=== PATIENT | female | born 1975 | race Caucasian/White ===

== ENCOUNTER 2017-11-29 08:14 | Outpatient (CLI) | payer OTHER ==
[2017-11-29 12:47] LABS: BASOPHILS % (AUTO) 0.9 %; EOSINOPHILS # (AUTO) 0.1 10^3/uL (0.0-0.7); EOSINOPHILS % (AUTO) 1.3 %; HGB - HEMOGLOBIN 13.7 g/dL (12.0-16.0); LYMPHOCYTES # (AUTO) 1.5 10^3/uL (1.5-3.5); LYMPHOCYTES % (AUTO) 31.3 %; MEAN CORPUSCULAR HGB CONC 33.3 g/dL (32.0-36.0); MEAN CORPUSCULAR VOLUME 93.3 fL (81.0-99.0); MONOCYTES # (AUTO) 0.5 10^3/uL (0.0-1.0); MONOCYTES % (AUTO) 9.7 %; NEUTROPHILS # (AUTO) 2.8 10^3/uL (1.5-6.6); NEUTROPHILS % (AUTO) 56.8 %; PLT - PLATELET COUNT 135 10^3/uL (130-450); RED BLOOD COUNT 4.42 10^6/uL (4.20-5.40); RED CELL DISTRIBUTION WIDTH 13.4 % (12.0-15.0); WHITE BLOOD COUNT 4.9 x10^3/uL (4.8-10.8)
[2017-11-29 13:24] LABS: ALBUMIN 4.3 g/dL (3.2-5.5); ALBUMIN/GLOBULIN RATIO 1.5 (1.0-2.2); ALKALINE PHOSPHATASE 37 IU/L (42-121); ALT ALANINE AMINOTRANSFERASE 17 IU/L (10-60); AST ASPARTATE AMINOTRANSFERASE 17 IU/L (10-42); BILIRUBIN,TOTAL 1.4 mg/dL (0.2-1.0); BUN - BLOOD UREA NITROGEN 12 mg/dL (6-20); CARBON DIOXIDE - CO2 26 mmol/L (21-32); CHLORIDE 104 mmol/L (101-111); CHOL/HDL RATIO 3.2 (<4.4); CHOLESTEROL 167 mg/dL; CREATININE 0.7 mg/dL (0.4-1.0); GFR - MDRD 92 (>89); GLUCOSE 95 mg/dL (70-100); HDL CHOLESTEROL 52 mg/dL; SODIUM 136 mmol/L (135-145); TOTAL PROTEIN 7.2 g/dL (6.7-8.2)
[2017-11-29 14:43] LABS: LDL CHOLESTEROL,DIRECT 90 mg/dL; LDLD/HDL RATIO 1.7 (<4.4)
== END 2017-11-29 08:15 | disposition home or self-care (01) ==
LOC: LAB.F 08:14
PROVIDERS: ATTEND Nurse Practitioner Family
DX: Z00.00 Encounter for general adult medical examination without abnormal findings (principal); E55.9 Vitamin D deficiency, unspecified; E78.5 Hyperlipidemia, unspecified
CPT/HCPCS: 36415; 80053; 80061; 82306; 82728; 83090; 83721; 85025

== ENCOUNTER 2017-12-20 08:04 | Outpatient (CLI) | payer OTHER ==
[2017-12-20 12:27] LABS: T4 (THYROXINE) 7.4 ug/dL (6.09-12.23)
[2017-12-20 12:33] LABS: THYROID STIMULATING HORMONE 1.83 uIU/mL (0.34-5.60)
[2017-12-20 12:36] LABS: FREE T4 (FREE THYROXINE) 0.88 ng/dL (0.58-1.64)
[2017-12-22 10:36] LABS: THYROID PEROXIDASE ANTIBODIES <1 IU/mL (<9)
== END 2017-12-20 08:05 | disposition home or self-care (01) ==
LOC: LAB.F 08:04
PROVIDERS: ATTEND Nurse Practitioner Family
DX: R53.83 Other fatigue (principal)
CPT/HCPCS: 36415; 84436; 84439; 84443; 84481; 84482; 86376; 86800

== ENCOUNTER 2018-08-11 11:15 | Outpatient (CLI) | payer BC ==
--- NOTE | 2018-08-11 13:26 | XRAY Report ---
Reason: COCCYX PAIN Procedure Date: 08/11/2018 Accession Number: [id number] / [id number] Procedure: XR - Sacrum/Coccyx CPT Code: FULL RESULT: EXAM: SACRUM AND COCCYX RADIOGRAPHY EXAM DATE: 08/11/2018 12:24 PM. HISTORY: Coccyx pain. COMPARISONS: None. TECHNIQUE: 2 views. FINDINGS: Alignment: Normal. The sacrum and coccyx are normally aligned. Bones: Normal. No fracture or bone lesion. Joints: Normal. The sacroiliac joints and visualized hips are within normal limits. Soft Tissues: Unremarkable. IMPRESSION: No fracture is detected. RADIA
== END 2018-08-11 11:16 | disposition home or self-care (01) ==
LOC: DI 11:15
PROVIDERS: ATTEND Nurse Practitioner Family
DX: M53.3 Sacrococcygeal disorders, not elsewhere classified (principal)
CPT/HCPCS: 72220

== ENCOUNTER 2020-11-11 09:41 | Outpatient (CLI) | payer OTHER ==
[2020-11-11 14:45] LABS: BASOPHILS % (AUTO) 0.7 %; EOSINOPHILS # (AUTO) 0.1 10^3/uL (0.0-0.7); EOSINOPHILS % (AUTO) 1.5 %; HCT - HEMATOCRIT 42.5 % (37.0-47.0); HGB - HEMOGLOBIN 13.6 g/dL (12.0-16.0); LYMPHOCYTES # (AUTO) 1.6 10^3/uL (1.5-3.5); LYMPHOCYTES % (AUTO) 30.5 %; MEAN CORPUSCULAR HEMOGLOBIN 30.6 pg (27.0-31.0); MEAN CORPUSCULAR VOLUME 95.5 fL (81.0-99.0); MEAN PLATELET VOLUME 12.8 fL (7.9-10.8); MONOCYTES # (AUTO) 0.4 10^3/uL (0.0-1.0); MONOCYTES % (AUTO) 8.2 %; NEUTROPHILS # (AUTO) 3.2 10^3/uL (1.5-6.6); NEUTROPHILS % (AUTO) 58.9 %; PLT - PLATELET COUNT 161 10^3/uL (130-450); RED BLOOD COUNT 4.45 10^6/uL (4.20-5.40); RED CELL DISTRIBUTION WIDTH 12.8 % (12.0-15.0); WHITE BLOOD COUNT 5.4 x10^3/uL (4.8-10.8)
== END 2020-11-11 09:42 | disposition home or self-care (01) ==
LOC: LAB.S 09:41
PROVIDERS: ATTEND Nurse Practitioner Family
DX: Z13.1 Encounter for screening for diabetes mellitus (principal)
CPT/HCPCS: 36415; 85025

== ENCOUNTER 2020-11-24 12:59 | Outpatient (CLI) | payer OTHER ==
--- NOTE | 2020-11-25 12:59 | Mammography Report ---
BILATERAL DIGITAL SCREENING MAMMOGRAM 3D/2D WITH EXAGGERATED CC: 11/24/2020 CLINICAL: Baseline exam. Routine screening. Routine screening. Comparison is made to exams dated: 09/14/2013 ultrasound and 09/14/2013 mammogram - [facility]. The tissue of both breasts is heterogeneously dense. This may lower the sensitivity of m ammography. No significant masses, calcifications, or other findings are seen in either breast. There has been no significant interval change. IMPRESSION: NEGATIVE There is no mammographic evidence of malignancy. A 1 year screening mammogram is recommended. This exam was interpreted at Station ID: [id number]. NOTE: For mammograms, a report in lay terms will be sent to the patient. Approximately 15% of breast malignancies will not be visualized mammographically. In the management of a palpable breast mass, a negative mammogram must not discourage biopsy of a clinically suspicious lesion. Electronically Signed By: Jose Antonio Puente M.D., jr/[place]:11/24/2020 13:44:44 ACR BI-RADS Category 1: Negative 3341F PARENCHYMAL PATTERN: (D) - The breast(s) demonstrate(s) heterogeneously dense fibroglandular lucinda bates. BI-RADS CATEGORY: (1) - 1 RECOMMENDATION: (ANNUAL) - Recommend routine annual screening mammography. [id number] 1 year screening LATERALITY: (B)
== END 2020-11-24 13:00 | disposition home or self-care (01) ==
LOC: DI.S 12:59
PROVIDERS: ATTEND Nurse Practitioner Family
DX: Z12.31 Encounter for screening mammogram for malignant neoplasm of breast (principal)

== ENCOUNTER 2021-01-07 15:00 | Outpatient (CLI) | payer OTHER ==
[2021-01-07] MEDS ORDERED: GADOBUTROL 7.5 MMOL/7.5 ML VIAL ONE (15:10)
--- NOTE | 2021-01-07 16:25 | MRI Report ---
PROCEDURE: IACS W/WO INDICATIONS: SENSORINEURAL HEARING LOSS CONTRAST: IV CONTRAST: Gadavist ml: 7.5 TECHNIQUE: Noncontrast sagittal T1 spin echo, axial FLAIR, axial gradient echo, axial diffusion and ADC through the brain. Axial thin-slice 3D CISS, coronal balanced GE, axial T1 spin echo with fat saturation thr ough the internal auditory canals. After the administration of contrast, thin slice axial and thorpe l T1 spin echo with fat saturation through the internal auditory canals, and axial T1 spin echo with fat saturation through the brain. COMPARISON: None. FINDINGS: Image quality: Excellent. Cerebellopontine angles: There is a mass seen within the left cerebellopontine angle cistern which pa rtially goes into the left internal auditory canal. This can be seen on series 1001 image 12 and radha ures 17 x 12 mm in greatest axial dimension, with a craniocaudal extent of 14 mm. Mass effect can be seen upon the left cerebellopontine angle itself. This mass demonstrates bright, uniform enhancement and demonstrates only mildly increased signal on T2-weighted imaging. No right-sided masses are seen. CSF spaces: Ventricles are normal in size and shape. No extra-axial fluid collections. Basal ciste rns are patent. Brain: No intracranial bleeds or mass effects. Andersen-white matter interface is intact. No abnormal intracranial enhancement. Diffusion weighted images demonstrate no acute ischemic insults. Brainste m appears normal. Normal intravascular flow voids are present. Skull and face: Calvarial marrow signal is normal. Orbits appear normal. Sinuses: Sinuses and mastoids are clear. IMPRESSION: There is a 17 mm left cerebellopontine angle cistern mass. 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 Vestibular schwannoma is possible, yet considered to be less likely. Reviewed by: Eric Conti MD on 01/07/2021 3:23 PM MOMO Approved by: Eric Conti MD on 01/07/2021 3:23 PM MOMO Station ID: [id number]
[2021-01-07] MEDS ORDERED: GADOBUTROL 7.5 MMOL/7.5 ML VIAL IVP ONE (17:21)
== END 2021-01-07 15:01 | disposition home or self-care (01) ==
LOC: DI 15:00
PROVIDERS: ATTEND Otolaryngology
DX: H93.12 Tinnitus, left ear (principal); H90.42 Sensorineural hearing loss, unilateral, left ear, with unrestricted hearing on the contralateral side; D33.2 Benign neoplasm of brain, unspecified
CPT/HCPCS: 70543; A9585

== ENCOUNTER 2022-06-07 13:46 | Outpatient (CLI) | payer OTHER ==
[~2022-06-07 13:46] MED LIST: GADOBUTROL 10 MMOL/10 ML VIAL ONE
--- NOTE | 2022-06-07 16:22 | MRI Report ---
PROCEDURE: BRAIN W/WO INDICATIONS: VESTIBULAR SCHWANNOMA CONTRAST: gadavist 8.6ml TECHNIQUE: Noncontrast axial T1 spin echo, axial T2 fast spin echo, sagittal and axial FLAIR, coronal T2 fast sp in echo, axial gradient echo, axial diffusion and ADC through the brain. After the administration of contrast, axial and coronal T1 spin echo with fat saturation through the brain. COMPARISON: MR IAC 01/07/2021 FINDINGS: Image quality: Excellent. CSF spaces: Basal cisterns are patent. No extra-axial fluid collections. Ventricles are normal in size and shape. Brain: No midline shift. No intracranial bleeds. Previous left schwannoma has been removed in the i nterval since the prior exam. There is minimal residual linear enhancement at the cerebellar cistern at the site of resection. No focal defined mass is identified. The brainstem appears normal. Diffusion-weighted images demonstrate no acute ischemic ischemia. Norm al intravascular flow voids are present. Skull and face: Calvarial marrow is normal in signal. Orbits appear normal. Sinuses: Sinuses and mastoids appear clear. 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 Minimal appearance of linear enhancement r emains present within this region possibly postsurgical although very minimal residual mass cannot be definitively excluded. Recommend continued interval follow-up with comparison to the postsurgical benito crews. Reviewed by: Gabi Power MD on 06/07/2022 4:21 PM PST Approved by: Gabi Power MD on 06/07/2022 4:21 PM PST Station ID: [id number]
[2022-06-07] MEDS ORDERED: GADOBUTROL 10 MMOL/10 ML VIAL IVP ONE (16:27)
== END 2022-06-07 13:47 | disposition home or self-care (01) ==
LOC: DI 13:46
PROVIDERS: ATTEND Otolaryngology
DX: D33.3 Benign neoplasm of cranial nerves (principal)
CPT/HCPCS: 70553; A9585

== ENCOUNTER 2022-08-16 10:46 | Outpatient (CLI) | payer OTHER ==
--- NOTE | 2022-08-18 10:04 | Mammography Report ---
BILATERAL DIGITAL SCREENING MAMMOGRAM 3D/2D: 08/16/2022 CLINICAL: Routine screening. Comparison is made to exams dated: 11/24/2020 mammogram and 09/14/2013 mammogram - [facility]. Both breasts are heterogeneously dense, which may obscure small masses (category c / 51-75% glandular tissue). No significant masses, calcifications, or other findings are seen in either breast. There has been no significant interval change. IMPRESSION: NEGATIVE There is no mammographic evidence of malignancy. A 1 year screening mammogram is recommended. Based on the Tyrer Cuzick model (a risk assessment model) the patients lifetime risk is 16.4% and he r 10 year risk is 3.4%. According to the ACR, ACS, and NCCN guidelines, an annual breast MRI exam anibal ng with mammogram is recommended if the patients lifetime risk is 20% or greater. This exam was interpreted at Station ID: [id number]. NOTE: For mammograms, a report in lay terms will be sent to the patient. Approximately 15% of breast malignancies will not be visualized mammographically. In the management of a palpable breast mass, a negative mammogram must not discourage biopsy of a clinically suspicious lesion. Electronically Signed By: Damion hwang/[place]:08/16/2022 17:01:39 letter sent: No_Letter ACR BI-RADS Category 1: Negative 3341F PARENCHYMAL PATTERN: (D) - The breast(s) demonstrate(s) heterogeneously dense fibroglandular lucinda bates. BI-RADS CATEGORY: (1) - 1 Mammogram [id number] 1 year screening LATERALITY: (B)
== END 2022-08-16 10:47 | disposition home or self-care (01) ==
LOC: DI.S 10:46
PROVIDERS: ATTEND Nurse Practitioner Family
DX: Z12.31 Encounter for screening mammogram for malignant neoplasm of breast (principal)

== ENCOUNTER 2023-11-22 13:04 | Outpatient (CLI) | payer OTHER ==
--- NOTE | 2023-11-24 09:15 | Mammography Report ---
BILATERAL DIGITAL SCREENING MAMMOGRAM 3D/2D: 11/22/2023 CLINICAL: Routine screening. Comparison is made to exams dated: 08/16/2022 mammogram and 11/24/2020 mammogram - [facility]. Both breasts are heterogeneously dense, which may obscure small masses (category c / 51-75% glandular tissue). No significant masses, calcifications, or other findings are seen in either breast. There has been no significant interval change. IMPRESSION: NEGATIVE There is no mammographic evidence of malignancy. A 1 year screening mammogram is recommended. Based on the Tyrer Cuzick model (a risk assessment model) the patient's lifetime risk is 16.5% and he r 10 year risk is 3.6%. According to the ACR, ACS, and NCCN guidelines, an annual breast MRI exam anibal ng with mammogram is recommended if the patient's lifetime risk is 20% or greater. This exam was interpreted at Station ID: [id number]. NOTE: For mammograms, a report in lay terms will be sent to the patient. Approximately 15% of breast malignancies will not be visualized mammographically. In the management of a palpable breast mass, a negative mammogram must not discourage biopsy of a clinically suspicious lesion. Electronically Signed By: Negro shannon/[place]:11/22/2023 16:23:39 letter sent: No_Letter ACR BI-RADS Category 1: Negative 3341F PARENCHYMAL PATTERN: (D) - The breast(s) demonstrate(s) heterogeneously dense fibroglandular lucinda bates. BI-RADS CATEGORY: (1) - 1 RECOMMENDATION: (ANNUAL) - Recommend routine annual screening mammography. [id number] 1 year screening LATERALITY: (B)
== END 2023-11-22 13:05 | disposition home or self-care (01) ==
LOC: DI.S 13:04
PROVIDERS: ATTEND Nurse Practitioner Family
DX: Z12.31 Encounter for screening mammogram for malignant neoplasm of breast (principal); R92.333 Mammographic heterogeneous density, bilateral breasts

== ENCOUNTER 2023-11-28 07:38 | Outpatient (CLI) | payer OTHER ==
[2023-11-28 15:29] LABS: ALBUMIN 4.7 g/dL (3.2-5.5); ALBUMIN/GLOBULIN RATIO 2.1 (1.0-2.2); ALKALINE PHOSPHATASE 39 IU/L (42-121); ALT ALANINE AMINOTRANSFERASE 16 IU/L (10-60); AST ASPARTATE AMINOTRANSFERASE 16 IU/L (10-42); BILIRUBIN,TOTAL 0.9 mg/dL (0.2-1.0); BUN - BLOOD UREA NITROGEN 11 mg/dL (6-20); CALCIUM 9.6 mg/dL (8.5-10.3); CARBON DIOXIDE - CO2 29 mmol/L (21-32); CHLORIDE 106 mmol/L (101-111); CHOL/HDL RATIO 2.8 (<4.4); CHOLESTEROL 176 mg/dL; CREATININE 0.8 mg/dL (0.6-1.3); GFR - MDRD 77 (>89); GLUCOSE 98 mg/dL (74-104); HDL CHOLESTEROL 63 mg/dL; LDL CHOLESTEROL,CALCULATED 103 mg/dL; LDL/HDL RATIO 1.6 (<4.4); POTASSIUM 4.2 mmol/L (3.5-4.5); SODIUM 139 mmol/L (135-145); TOTAL PROTEIN 6.9 g/dL (6.4-8.9); TRIGLYCERIDES 51 mg/dL; VLDL CHOLESTEROL 10 mg/dL
== END 2023-11-28 07:39 | disposition home or self-care (01) ==
LOC: LAB.S 07:38
PROVIDERS: ATTEND Nurse Practitioner Family
DX: Z13.220 Encounter for screening for lipoid disorders (principal)
CPT/HCPCS: 36415; 80053; 80061; 83721